=== PATIENT | female | born 1990 | race Caucasian/White ===

== ENCOUNTER 2018-08-05 02:24 | Inpatient (IN) | payer MEDICAID ==
[2018-08-05] MEDS ORDERED: LACTATED RINGER'S 1,000 ML IV (02:36)
[2018-08-05] MEDS ORDERED: METHYLERGONOVINE 0.2 MG INJ IM ×2 (03:00→09:30)
[2018-08-05] MEDS ORDERED: IBUPROFEN 600 MG TAB PO (03:00)
[2018-08-05] MEDS ORDERED: OXYTOCIN 30 UNITS/LR 500 ML IV ×2 (03:00→09:30)
[2018-08-05] MEDS ORDERED: CARBOPROST 250 MCG INJ IM ×2 (03:00→09:30)
[2018-08-05] MEDS ORDERED: MISOPROSTOL 200 MCG TAB PR ×2 (03:00→09:30)
[2018-08-05] MEDS ORDERED: AMPICILLIN 2 GM/NS (PMX) 100 ML IV (03:00)
[2018-08-05 03:01] LABS: ADD MAN DIFF? NO
[2018-08-05 03:08] LABS: WHITE BLOOD COUNT 13.3 10^3/ul (4.8-10.8)
[2018-08-05 03:08] LABS: BASOPHIL # 0.1 10^3/ul (0.0-0.1); BASOPHILS % 0.5 % (0.0-2.0); EOSINOPHILS # 0.1 10^3/ul (0.0-0.5); EOSINOPHILS % 0.9 % (0.0-7.0); HEMATOCRIT 38.8 % (37.0-47.0); HEMOGLOBIN 12.9 g/dl (12.0-16.0); LYMPHOCYTES # 3.7 10^3/ul (0.8-2.9); LYMPHOCYTES % 27.8 % (15.0-51.0); MEAN CORPUSCULAR HEMOGLOBIN 27.9 pg (29.0-33.0); MEAN CORPUSCULAR HGB CONC 33.2 g/dl (32.0-37.0); MEAN CORPUSCULAR VOLUME 83.8 fl (82.0-101.0); MEAN PLATELET VOLUME 11.2 fl (7.4-10.4); MONOCYTES % 7.3 % (0.0-11.0); NEUTROPHIL # 8.3 10^3/ul (1.6-7.5); NEUTROPHILS % 62.3 % (39.0-77.0); NUCLEATED RED BLOOD CELLS% 0.2 /100WBC (0.0-0.0); PLATELET COUNT 236 10^3/UL (140-415); RED BLOOD COUNT 4.63 10^6/ul (4.20-5.40); RED CELL DISTRIBUTION WIDTH 14.6 % (11.5-14.5)
[2018-08-05 03:30] LABS: INR 0.76; PARTIAL THROMBOPLASTIN TIME 23.5 Sec (23.0-35.0); PROTIME 10.8 Sec (11.9-14.9); PT RATIO 0.8
[2018-08-05] MEDS: BUTORPHANOL 2 MG INJ IV (04:04)
[2018-08-05 04:35] LABS: HEPATITIS B SURFACE ANTIGEN NEGATIVE (NEGATIVE)
[2018-08-05] MEDS ORDERED: AMPICILLIN 1 GM/NS (PMX) 50 ML IV (07:00)
[2018-08-05] MEDS: LIDOCAINE 1% (MPF) 30 ML INJ INJ (07:13)
[2018-08-05] MEDS: OXYTOCIN 30 UNITS/LR 500 ML IV ×2 (07:14)
[2018-08-05] MEDS: LACTATED RINGER'S 1,000 ML IV* ×2 (09:14→17:14)
[2018-08-05] MEDS ORDERED: ONDANSETRON 4 MG INJ IV (09:30)
[2018-08-05] MEDS ORDERED: DIBUCAINE 1% 30 GM OINT TOP (09:30)
[2018-08-05] MEDS ORDERED: SENNA/DOCUSATE NA (8.6MG/50MG) TAB PO (09:30)
[2018-08-05] MEDS ORDERED: ACETAMINOPHEN 325 MG TAB PO (09:30)
[2018-08-05] MEDS ORDERED: DIPHENHYDRAMINE 50 MG INJ IV (09:30)
[2018-08-05] MEDS ORDERED: ZOLPIDEM 5 MG TAB PO (09:30)
[2018-08-05] MEDS: MINERAL OIL LIGHT 10 ML VIAL TOP (09:35)
[2018-08-05] MEDS: IBUPROFEN 600 MG TAB PO ×3 (11:42→23:28)
[2018-08-05] MEDS: DEXTROSE 5%-LR 1,000 ML IV ×2 (11:43→17:14)
[2018-08-05] MEDS: BENZOCAINE 20% 56 ML SPRAY TOP (11:43)
[2018-08-05] MEDS: WITCH HAZEL/GLYCERIN PAD PR (11:43)
[2018-08-05] MEDS: LANOLIN HPA 1 PKT TOP (11:43)
[2018-08-05 15:06] LABS: RAPID PLASMA REAGIN NONREACTIVE (NR)
[2018-08-05] MEDS: OXYCODONE/ASPIRIN (4.88/325) TAB PO (16:40)
[2018-08-05] MEDS: MAGNESIUM HYDROXIDE 30ML CUP PO (21:24)
[2018-08-06] MEDS: IBUPROFEN 600 MG TAB PO ×4 (05:36→23:37)
[2018-08-06 08:17] LABS: ADD MAN DIFF? NO
[2018-08-06 08:23] LABS: WHITE BLOOD COUNT 15.4 10^3/ul (4.8-10.8)
[2018-08-06 08:23] LABS: BASOPHILS % 0.2 % (0.0-2.0); EOSINOPHILS # 0.2 10^3/ul (0.0-0.5); EOSINOPHILS % 1.1 % (0.0-7.0); HEMOGLOBIN 11.2 g/dl (12.0-16.0); LYMPHOCYTES # 3.6 10^3/ul (0.8-2.9); LYMPHOCYTES % 23.1 % (15.0-51.0); MEAN CORPUSCULAR HEMOGLOBIN 27.5 pg (29.0-33.0); MEAN CORPUSCULAR HGB CONC 32.9 g/dl (32.0-37.0); MEAN CORPUSCULAR VOLUME 83.5 fl (82.0-101.0); MEAN PLATELET VOLUME 11.7 fl (7.4-10.4); MONOCYTE # 0.9 10^3/ul (0.3-0.9); MONOCYTES % 6.1 % (0.0-11.0); NEUTROPHIL # 10.4 10^3/ul (1.6-7.5); NEUTROPHILS % 67.7 % (39.0-77.0); PLATELET COUNT 211 10^3/UL (140-415); RED BLOOD COUNT 4.07 10^6/ul (4.20-5.40); RED CELL DISTRIBUTION WIDTH 15.1 % (11.5-14.5)
[2018-08-06] MEDS: MAGNESIUM HYDROXIDE 30ML CUP PO ×2 (08:42→21:16)
[2018-08-07] MEDS: IBUPROFEN 600 MG TAB PO ×3 (05:33→18:00)
[2018-08-07] MEDS: MEASLES,MUMPS,RUBELLA VACCINE INJ SC* (09:42)
[2018-08-07] MEDS: MAGNESIUM HYDROXIDE 30ML CUP PO (09:44)
[2018-08-07] MEDS: DIPHTH/TET/ACEL PERTUSS (ADULT) 0.5 ML VIAL IM* (09:46)
== END 2018-08-07 19:08 | disposition home or self-care (01) | DRG 807 ==
LOC: OBT 02:24 → L-D 02:24 → OBT 03:24 → L-D 02:39 → PP1 09:35
PROVIDERS: Obstetrics & Gynecology
PROC: 10E0XZZ Delivery of Products of Conception, External Approach (ICD-10-PCS; principal; 2018-08-07)
DX: O70.1 Second degree perineal laceration during delivery (principal); Z37.0 Single live birth; Z3A.39 39 weeks gestation of pregnancy
CPT/HCPCS: 85025; 85610; 85730; 86592; 86850; 86900; 86901; 87340; 90715; 99464